=== PATIENT | male | born 1980 | race Caucasian/White ===

== ENCOUNTER 2016-07-08 10:15 | Inpatient (IN) | payer MEDICARE, MEDICAID ==
[2016-07-08 11:20] LABS: Hematocrit 45 % (42-52); Hemoglobin 15.5 g/dl (14.0-18.0); Mean Corpuscular HGB Conc 34 g/dl (31-36); Mean Corpuscular Hemoglobin 31 pg (27-31); Mean Corpuscular Volume 90 fL (80-94); Mean Platelet Volume 10 um3 (7.4-10.4); Red Blood Count 5.07 10^6/ul (4.0-5.4); Red Cell Distribution Width 14 % (10.5-15); White Blood Count 8.2 10^3/ul (3.5-10.8)
[2016-07-08 11:36] LABS: ALT 9 U/L (7-52); AST 11 U/L (13-39); Albumin 4.5 g/dL (3.2-5.2); Alkaline Phosphatase 36 U/L (34-104); Anion Gap 7 mmol/L (2-11); Blood Urea Nitrogen 13 mg/dL (6-24); CO2 Carbon Dioxide 27 mmol/L (22-32); Calcium 9.3 mg/dL (8.6-10.3); Chloride 103 mmol/L (101-111); EGFR African American 118.2 (>60); EGFR Non-African American 91.9 (>60); Globulin 2.4 g/dL (2-4); Glucose 88 mg/dL (70-100); Potassium 4.1 mmol/L (3.5-5.0); Sodium 137 mmol/L (133-145); Total Protein 6.9 g/dL (6.4-8.9)
[2016-07-08 11:44] LABS: Urine Bilirubin Negative (Negative); Urine Glucose Negative (Negative); Urine Nitrite Negative (Negative)
[2016-07-08 12:08] LABS: Benzodiazepine Urine Screen None Detected (None Detect)
[2016-07-08 12:11] LABS: Acetaminophen < 15 mcg/mL; Alcohol < 10 mg/dL (<10); Salicylate < 2.50 mg/dL (<30)
[2016-07-08 12:21] LABS: TSH (Thyroid Stimulating Horm) 0.82 mcIU/mL (0.34-5.60)
[2016-07-08] MEDS ORDERED: Nicotine GUM* 2 MG PO PRN (13:03)
[2016-07-08] MEDS ORDERED: Mouth Piece, Nicotine* 1 EACH CARTRIDGE INH ONE (14:00)
--- NOTE | 2016-07-08 16:31 | ED ---
Jeramy Posey Erika, scribed for Hung Villa MD on 07/08/16 at 1109 . Psychiatric Complaint - HPI Summary HPI Summary: Patient is a 35-year-old male presenting to the ED with a CC of SI. Patient reports a Hx of depression and bipolar disorder, and states he takes 2000 mg depakote daily. He reports he used to take the medication at night, and recently began taking it in the morning. Pt states medication was working well until a few weeks ago, when pt's girlfriend . He states he has cut himself on his arms since then, and is afraid he is going to hurt himself. Pt also reports, "I sometimes feel like I'm being followed." Pt states he has not been eating "appropriately," although he has been eating "a lot," and states he has been sleeping well. Pt reports that he works on and off. Pt denies Hx HTN, diabetes, hyperlipidemia. PSHx calcium deposit removal. FHx cancer, HTN, diabetes, Alzheimer's, stroke. Pt smokes 1PPD, and uses cocaine. He states he was drinking daily in May 2016, but stopped recently and now rarely drinks. - History Of Current Complaint Chief Complaint: EDMentalHealth Time Seen by Provider: 07/08/16 10:21 Accompanied By: Brother? Hx Obtained From: Patient Onset/Duration: Gradual Onset, Lasting Weeks, Still Present Timing: Constant Severity Initially: Moderate Severity Currently: Moderate Character: Depressed Aggravating Factor(s): Recent Stress - Girlfriend's Alleviating Factor(s): Nothing Associated Signs And Symptoms: Positive: Paranoid Behavior, Appetite Change Related History: Positive For: Prior Psychiatric Issues Has Suicidal: Reports: Thoughts, With A Plan, Has Prior Attempt(s) - Allergies/Home Medications Allergies/Adverse Reactions: Allergies Allergy/AdvReac Type Severity Reaction Status Date / Time Vancomycin Allergy RED MAN Verified 07/08/16 15:53 SYNDROME Bupropion [From Wellbutrin] AdvReac Intermediate Blurred Verified 07/08/16 15:53 Vision PMH/Surg Hx/FS Hx/Imm Hx Endocrine/Hematology History: Denies: Hx Diabetes, Hx Thyroid Disease Respiratory History: Denies: Hx Asthma, Hx Chronic Obstructive Pulmonary Disease (COPD) GI History: Denies: Hx Ulcer Musculoskeletal History: Reports: Other Musculoskeletal History - OCC SCIATICA Sensory History: Denies: Hx Contacts or Glasses, Hx Hearing Aid Opthamlomology History: Denies: Hx Contacts or Glasses Psychiatric History: Reports: Hx Anxiety, Hx Post Traumatic Stress Disorder, Hx Inpatient Treatment, Hx Community Mental Health Tx, Hx Bipolar Disorder, Hx Substance Abuse Denies: Hx Eating Disorder, Hx of Violent Episodes Against Others - Surgical History Surgery Procedure, Year, and Place: History of bone growth removal- Pt unsure of year Hx Anesthesia Reactions: No - Immunization History Date of Tetanus Vaccine: unknown Infectious Disease History: No Infectious Disease History: Reports: Hx of Known/Suspected MRSA - SKIN Denies: Hx Hepatitis, Hx Human Immunodeficiency Virus (HIV), Traveled Outside the [place] in Last 30 Days - Family History Known Family History: Positive: Hypertension, Diabetes, Other - cancer, Alzheimer's, stroke - Social History Alcohol Use: Rare Substance Use Type: Reports: Cocaine, Heroin, Marijuana Substance Use Comment - Amount & Last Used: 1-2 TIMES/WEEK Hx Tobacco Use: Yes Smoking Status (MU): Current Every Day Smoker Type: Cigarettes Amount Used/How Often: 1 PPD Have You Smoked in the Last Year: Yes Review of Systems Skin: Other - lacerations to arms Psychological: Other - states some paranoia, appetite change Positive: Depressed - with SI All Other Systems Reviewed And Are Negative: Yes Physical Exam - Summary Physical Exam Summary: VITAL SIGNS: Reviewed. GENERAL: Patient is a well developed and nourished male who is lying comfortable in the stretcher. Patient is not in any acute respiratory distress. HEAD AND FACE: No signs of trauma. No ecchymosis, hematomas or skull depressions. No sinus tenderness. EYES: PERRLA, EOMI x 2, No injected conjunctiva, no nystagmus. EARS: Hearing grossly intact. Ear canals and tympanic membranes are within normal limits. MOUTH: Oropharynx within normal limits. NECK: Supple, trachea is midline, no adenopathy, no JVD, no carotid bruit, no c- spine tenderness, neck with full ROM. CHEST: Symmetric, no tenderness at palpation LUNGS: Clear to auscultation bilaterally. No wheezing or crackles. CVS: Regular rate and rhythm, S1 and S2 present, no murmurs or gallops appreciated. ABDOMEN: Soft, non-tender. No signs of distention. No rebound no guarding, and no masses palpated. Bowel sounds are normal. EXTREMITIES: FROM in all major joints, no edema, no cyanosis or clubbing. NEURO: Alert and oriented x 3. No acute neurological deficits. Speech is normal and follows commands. SKIN: Dry and warm, UE with multiple superficial lacerations. PSYCH: Depressed, quiet, positive suicidal thoughts and plan. No homicidal thoughts or plan. No signs of psychosis or pressure speech. No tangential speech. Triage Information Reviewed: Yes Vital Signs On Initial Exam: Initial Vitals Temp Pulse Resp BP Pulse Ox 97.9 F 110 16 152/89 99 07/08/16 10:16 07/08/16 10:16 07/08/16 10:16 07/08/16 10:16 07/08/16 10:16 Vital Signs Reviewed: Yes Diagnostics - Vital Signs Vital Signs Temp Pulse Resp BP Pulse Ox 07/08/16 10:16 97.9 F 110 16 152/89 99 - Laboratory Result Diagrams: 07/08/16 11:03 07/08/16 11:03 Lab Statement: Any lab studies that have been ordered have been reviewed, and results considered in the medical decision making process. Course/Dx - Course Course Of Treatment: Patient is a 35-year-old male presenting to the ED with a CC of SI. Patient reports a Hx of depression and bipolar disorder, and states he takes 2000 mg depakote daily. He reports he used to take the medication at night, and recently began taking it in the morning. Pt states medication was working well until a few weeks ago, when pt's girlfriend . He states he has cut himself on his arms since then, and is afraid he is going to hurt himself. Pt also reports, "I sometimes feel like I'm being followed." Pt states he has not been eating "appropriately," although he has been eating "a lot," and states he has been sleeping well. Pt reports that he works on and off. Pt denies Hx HTN, diabetes, hyperlipidemia. PSHx calcium deposit removal. FHx cancer, HTN, diabetes, Alzheimer's, stroke. Pt smokes 1PPD, and uses cocaine. He states he was drinking daily in May 2016, but stopped recently and now rarely drinks. All blood work WNL. U tox positive for cocaine and marihuana. He is medically cleared. He is awaiting for a MHE. Patient is hemodynamically stable and A+O x 3. The patient was assessed by Dr. Elias, and he admitted the patient to his services for further work up and management. Assessment/Plan: Patient is medically cleared for MHU Evaluation at 11:45 - Differential Dx/Clinical Impression Differential Diagnosis/HQI/PQRI: Positive: Depression, Homicidal Ideation, Suicidal Ideation, Suicidal Gesture Provider Diagnosis: Suicidal ideation, Depression Discharge - Discharge Plan Condition: Stable Disposition: ADMITTED TO [facility] The documentation as recorded by the Jeramy urban Erika accurately reflects the service I personally performed and the decisions made by , Hung Villa MD.
[2016-07-08] MEDS: Divalproex DR TAB(*) 500 MG PO SCH (21:09)
[2016-07-08] MEDS ORDERED: Mouth Piece, Nicotine* 1 EACH CARTRIDGE ONE (21:12)
[2016-07-08] MEDS: Nicotine Inhaler* 10 MG AMP INH PRN (21:14)
--- NOTE | 2016-07-09 16:48 | HP ---
PSYCHIATRIC HISTORY AND PHYSICAL: DATE OF ADMISSION: 07/08/16 JUSTIFICATION FOR ADMISSION: The patient is in need of 24-hour supervision and care secondary to antunez icidal ideations voiced within 72 hours of admission. CHIEF COMPLAINT: "Can I get out of here yet." HISTORY OF PRESENT ILLNESS: The patient is a 35-year-old single white male with a history of polysu bstance abuse and putative bipolar disorder who arrives at the hospital being brought in by his brot her Antwon due to suicidal ideations and evidence that he had been superficially cutting himself. A ccording to the patient, his girlfriend committed suicide approximately 3 weeks ago. He feels guilt y because they were huffing inhalant substances together and she passed out. He apparently did not call 911 thinking that she would be okay, but she as a result of that exposure to inhaled subst ances. Since then, he states that he returned to an ex-girlfriend for support; however, she has bee n prostituting herself and he feels enraged by this and upset. He recently started superficially cu tting himself on the arm; however, this was evaluated in the emergency room and did not require sutu res. When I meet with him, he is a disheveled middle-aged white male who looks nuvia and consider ably older than his stated age. He is telling me that he had an extended period of sobriety between January 2016 and May 2016, at which time he was taking a new medication called Vraylar as pre scribed by Dr. Brian Arciniega at [facility]. He states this controlled his cravi ng for drugs until that time that he started using again with his girlfriend. His use of cocaine an d cannabis in particular has intensified since her . At this point, the patient is declining t he offer of inpatient rehab, stating that he has been to 3 rehabs in the past and stating "what can they teach me that I don't already know." In his estimation, what is vital is that he get back on V raylar as well as the Depakote that he takes for his alleged bipolar disorder. The patient is now d enying suicidality and he denies homicidality. When he arrived, he had complained of some psychotic symptoms such as paranoia associated with seeing a white car following him, believing that he had b een monitored by a drone and finding special meaning to information over radio. At this time he is denying these symptoms, however. PAST PSYCHIATRIC HISTORY: He has had multiple past hospitalizations at this facility including 3 in the year of 2010. He had an admission also in September 2012 and his last admission here was July 2013 under the service of Dr. Robbin Elias. He indicates that as a child, he was diagnosed with OCD and attention deficit disorder. We have had past MMPI evaluations that indicate that he has significant [place] II personality traits. For example, he has a pattern of high levels of cynicism, sense of ent itlement and victimization. In the past he has also had micropsychotic symptoms, which were related to both substance abuse and [place] II personality pathology. Currently he sees a therapist at [facility] named Ronan Gillette. He also sees psychiatrist, Dr. Brian Arciniega. His last meeting Dr. Arciniega was in May. Currently he has no access to firearms. In the past he has us ed Zoloft, Abilify, Wellbutrin, Seroquel, Depakote, and Vraylar. PAST MEDICAL HISTORY: Considerable for hypertension. CURRENT MEDICATIONS: He states that he is on Depakote 2000 mg daily. 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 FAMILY PSYCHIATRIC HISTORY: Noncontributory. SUBSTANCE ABUSE HISTORY: The patient does have a previous history of alcohol dependence but he stat es that he has been sober for between 8 and 9 years. His drug of choice is crack cocaine and he als o is a daily cannabis smoker. The patient will use heroin occasionally through either snorting it o r through IV injection, but states that he has not used this in the last 6 months. He has been to r ehab 3 times, 2 extended rehabs at the [facility] and 1 rehab at [facility] in [place], [place]. SOCIAL HISTORY: The patient is originally from the [facility]. His parents are alive but di vorced. His father lives locally whereas his mother lives down at [place] and he spent a great deal of his life travelling back and forth between [place] and [place]. He does have 5 siblings and re ports not being close with any of them. He has 2 children, ages 14 and 19, who live with their moth er. Occasionally he sees his 14-year-old daughter but not his other child. He was for 2 ye ars and then . Most recently he dated a woman who of a drug overdose in June and ayala kenny went back to an old girlfriend who apparently has been prostituting herself and using crack also . He is educated through a GED and has worked in the past as a customer care professional. Currently he receives dis ability payments for what he states is bipolar disorder and chronic back pain. He identifies as het erosexual. He is also self-identifying as Mormon. REVIEW OF SYSTEMS: The patient denies headache or double vision. He denies cough, chest pain, sore throat, difficulty breathing. He denies abdominal pain, nausea, vomiting, diarrhea or constipation . He denies difficulty ambulating, rashes, enlarged lymph nodes or fevers or changes in weight. He does complain of several symptoms of cocaine withdrawal including irritability, hypersomnolence, hy perphasia, and reddening of his eyes. PHYSICAL EXAMINATION VITALS: Blood pressure 134/79, heart rate 79, respiratory rate 16, temperature 98.7 degrees Fahrenh eit, oxygen saturations are 100% on room air. HEENT: Head is normocephalic, atraumatic. He is edentulous. Mucous membranes are pink and moist. NECK: Supple. CHEST: Clear to auscultation bilaterally. CARDIAC: Reveals normal heart sounds. ABDOMEN: Soft and nontender. MUSCULOSKELETAL: Reveals a full range of motion with no sign of edema. NEUROLOGICAL: He is grossly intact with no focal deficits. SKIN: Warm and dry. MENTAL STATUS EXAM: The patient is a middle-aged white male appearing nuvia and considerably old er than his stated age. He is edentulous with red injected sclera, lying down supine in his bed. H e has long straggly hair with minimal grooming. He does display some evidence of irritability, alth ough he answers questions. Speech has a normal rate, tone and volume. Mood appears to be irritable with a somewhat labile affect. Thought process is linear, goal directed. Thought content is signi ficant for his desire to leave the hospital. He is denying suicidal or homicidal ideations currentl y. He is denying auditory or visual hallucinations and he denies any further delusional thoughts of persecution. He denies auditory or visual hallucinations. Insight and judgment appear to be somew hat limited given his refusal to be referred to substance abuse treatment. Cognitively he is awake but lethargic with what appears to be an average intellect. LABORATORY DATA: CBC is within normal limits as is his CMP. Urinalysis is likewise within normal l imits. Urine drug screen is positive for both cocaine and cannabinoids, metabolites. His serum alc ohol level was negligible. DIAGNOSES: Are as follows: [place] I: 1. Cocaine-induced mood disorder. 2. Cocaine use disorder. 3. Cannabis use disorder 4. Bipolar disorder by history. [place] II: Cluster B personality traits by history. [place] III: Hyper tension, chronic back pain. [place] IV: Severe primary support stressors. [place] V: At this time is 40. IMPRESSION: The patient is a 35-year-old single white male with a history of polysubstance abuse an d alleged bipolar disorder who arrived seeking hospitalization due to suicidal ideation in the graham xt of rampant cocaine abuse. He states that his stressor is the recent of his girlfriend as we ll as the prostituting lifestyle of his current girlfriend. He is willing to continue to take Depak ote and he is requesting reinitiation of Vraylar. Unfortunately, Vraylar is not included in our [facility] p[facility] formulary and we have no access to this medication unless someone can bring it in. The jacquelyn cai is huber for safety at this time. PLAN: 1. The patient is admitted to the Adult [facility]al [facility] Unit where he is placed on q.30 minute ch ecks for his own safety. 2. We will continue Depakote therapy at the dose of 200 mg at bedtime. If he choses to stay here w ithout signing out of the hospital, we can enquire at [facility] about getting hi m some samples of Vraylar to take. We are going to strongly encourage him to reconsider in order to get him into a substance abuse program as this appears to be his primary pathology at this time; ho wever, this will require voluntary participation and it does not appear that his insight into this i ssue is very good at this point. We can certainly contact his brother Louis for further collateral in formation and speak to representatives at [facility]. At the very least, he need s to have followup appointments at [facility] at his time of discharge. While he is here, he is certainl y encouraged to avail himself of all milieu activities including individual and group psychotherapie s. [id number]/[facility] #: [id number]
[2016-07-09] MEDS ORDERED: LORazepam TAB(*) 1 MG ONE (17:37)
[2016-07-09] MEDS ORDERED: Haloperidol TAB* 5 MG ONE ×2 (17:38→17:44)
[2016-07-09] MEDS: Divalproex DR TAB(*) 500 MG PO SCH ×2 (18:42→19:04)
[2016-07-10] MEDS: Nicotine Inhaler* 10 MG AMP INH PRN (07:36)
[2016-07-10 08:03] VITALS: BP 144/60
--- NOTE | 2016-07-11 03:11 | DS ---
DISCHARGE SUMMARY: DATE OF ADMISSION: 07/08/16 DATE OF DISCHARGE: 07/10/16 DISCHARGE DIAGNOSES: Are as follows: [place] I: Cocaine-induced mood disorder. Cocaine use disorder. Cannabis use disorder. Bipolar disorder by history. [place] II: Cluster B personality traits by history. [place] III: Hypertension, chronic back pain. [place] IV: Severe primary support stressors. [place] V: At the time of admission was 39 and at the time of discharge is 59. CONDITION AT THE TIME OF DISCHARGE: Improved. The patient denies suicidal or homicidal ideations. He is no longer endorsing paranoid symptoms. He is tolerating his medication well and is agreeable to following up tomorrow at the [facility]. Furthermore, he is future oriented indicating that he will return to live with his father in [place] and that he is breaking up with the current girlfriend who he has been using drugs with and who has been prostituting herself. It should be noted that the acute cause of his depressive illness and suicidal thoughts was abuse of crack cocaine. That acute stressor is now mitigated by virtue of the fact that the patient is now detoxified from cocaine and is seeking to abstain from substances in the future. MENTAL STATUS EXAM: At the time of discharge, the patient is a middle aged white male appearing older than his stated age. He is edentulous with somewhat unkempt long brown hair. He has [id number] grooming. Currently, he is cooperative, calm, answering questions and it is easy to establish a rapport with him. Speech has a normal rate, tone and volume. Mood appears to be euthymic with a full affect. Thought process is linear and goal directed. Thought content is significant for his desire to leave the hospital. He is denying suicidal or homicidal ideations currently. He is denying auditory or visual hallucination and he denies any further delusional thoughts or persecution. Insight and judgment appear to be limited given his refusal to be referred to substance abuse treatment in the community. Cognitively, he is awake and alert with what appears to be an average intellect. DISCHARGE INSTRUCTIONS: For the patient are as follows: A. Medications: He is on Depakote 2000 mg p.o. daily. B. Diet is regular. C. Activities as tolerated. The patient is strongly encouraged to abstain from tobacco products; however, he is declining the offer of continued nicotine replacement therapy indicating his preference to continue to smoke cigarettes for the time being. D. Followup care. The patient will be seen tomorrow which is , , at [facility] with his psychiatrist, Dr. Brian Arciniega. He has been offered followups at the [facility], but he is refusing these and is similarly refusing referral to inpatient substance abuse treatment. HOSPITAL COURSE: Part A: Reason for admission: The patient is a 35-year-old single white male with a history of polysubstance abuse and putative bipolar disorder, who arrived at the hospital being brought in by his brother, Antwon, due to suicidal ideations and evidence that he has been superficially cutting himself. According to the patient, his girlfriend committed suicide approximately 3 weeks ago. He feels guilty because they were huffing inhalant substances together in an effort to get high and she passed out. He apparently did not call 911 thinking that she would be okay, but she as a result of the exposure to inhaled psychoactive substances. Since then, he states that he returned to an ex- girlfriend for support; however, she has been prostituting herself in order to get money for drugs and he feels enraged and upset by this. Recently, he started superficially cutting himself on the arm; however, when this was evaluated in our emergency room, it did not require sutures. When I met with him, he was a disheveled middle aged male who looked nuvia and considerably older than his stated age. He was telling me that he had an extended period of sobriety between January 2016 and May of 2016 at which time, he was taking a new medication called Vraylar as prescribed by Dr. Brian Arciniega at [facility]. He states that this medication controlled his craving for drugs until that time that he started using again with his girlfriend. His use of cocaine and cannabis in particular has intensified since her . At this point, the patient is declining the offer of inpatient rehab stating that he has been to three long- term rehabilitation centers in the past and stating "what can they teach me that I do not already know." In his estimation what is vital is that he get back on Vraylar as well as the Depakote that he takes for his alleged bipolar disorder. The patient is now denying suicidality and he denies homicidality. According to the ER notes, when he arrived, he had complained of some psychotic symptoms such as paranoia associated with seeing a white car following him and believing that he had been monitored by a drone in finding special meaning to information that he had heard over the radio. In looking at his chart from old hospitalizations in the record, I see that he does have a history of so called micro psychotic events which were understood to be secondary to his abused substances and his underlying personality pathology. Part-B: Psychiatric treatment rendered: The patient was admitted to the adult behavioral health unit, where he was placed on q.30-minute checks for his own safety. He was assessed for the need for the WAM protocol, but he did not show any hemodynamic instability or signs of physiological withdrawal. For this reason, he was treated conservatively with Depakote 2000 mg p.o. q. nightly. He had requested to be resumed on Vraylar; however, he did not have any one who could go and cigar packer and picker his outpatient supply. I contacted our pharmacy who made it clear that this medication is new and not yet on the formulary and they did not even have off formulary supplies to use in this instance. It appears that he had not been using this medication since May of 2016. The patient's suicidality had already resolved by the time he arrived on our unit. On the second day of his hospitalization, he submitted a request for discharge against medical advice stating that he was no longer suicidal and that he wanted to go live with his father. Efforts were made in order to get him to sign a release of information for his father; however, the patient refused indicating that he was an adult and did not need parental support in that way. He did sign consents for us to contact [facility] and we confirmed that he has close followup in the community and has remained in the care of Dr. Brian Arciniega. At this time, it is advisable that he speak to Dr. Arciniega about being put back on Vraylar. We made several attempts to get him to reconsider substance abuse treatment; however, he declined this every time. On the date of discharge, he continues to endorse feeling well and back to his baseline. He is telling me that he wants to avoid using drugs by getting back on Vraylar and he has ended the relationship with his most recent substance abusing girlfriend. I should say that the patient's prognosis is somewhat limited given the fact that he is not accepting definitive treatment for his substance abuse issues, which are his primary problem at this time in my clinical opinion. In any rate, we would like to wish the patient the best for healthy and safe future. [id number]/[facility] #: [id number] LIZ
== END 2016-07-10 13:30 | disposition home or self-care (01) | DRG 897 ==
LOC: ED 10:15 → BSU 16:09
PROVIDERS: ADMIT Psychiatry & Neurology Psychiatry; ATTEND Psychiatry & Neurology Psychiatry
DX: F14.14 Cocaine abuse with cocaine-induced mood disorder (principal); F31.9 Bipolar disorder, unspecified; I10 Essential (primary) hypertension; F12.10 Cannabis abuse, uncomplicated; M54.9 Dorsalgia, unspecified; F10.21 Alcohol dependence, in remission; Z79.899 Other long term (current) drug therapy; Z88.1 Allergy status to other antibiotic agents
CPT/HCPCS: 36415; 80053; 80307; 80320; 80329; 81003; 84443; 85025; 86703; 99222; 99238; A9270-GY; G0480

== ENCOUNTER → 2016-12-12 13:19 | Emergency (ER) | payer MEDICARE, MEDICAID ==
[~2016-12-12 13:19] MED LIST: Mouth Piece, Nicotine* 1 EACH CARTRIDGE ONE; Nicotine Inhaler* 10 MG AMP INH ONE
[2016-12-12 14:12] LABS: Hematocrit 46 % (42-52); Hemoglobin 15.3 g/dl (14.0-18.0); Mean Corpuscular HGB Conc 33 g/dl (31-36); Mean Corpuscular Hemoglobin 30 pg (27-31); Mean Corpuscular Volume 90 fL (80-94); Mean Platelet Volume 9 um3 (7.4-10.4); Red Blood Count 5.13 10^6/ul (4.0-5.4); Red Cell Distribution Width 13 % (10.5-15); White Blood Count 4.9 10^3/ul (3.5-10.8)
[2016-12-12 14:23] LABS: ALT 37 U/L (7-52); AST 22 U/L (13-39); Albumin 3.9 g/dL (3.2-5.2); Alkaline Phosphatase 50 U/L (34-104); Anion Gap 5 mmol/L (2-11); BUN/Creatinine Ratio 14.5 (8-20); Blood Urea Nitrogen 12 mg/dL (6-24); CO2 Carbon Dioxide 27 mmol/L (22-32); Chloride 106 mmol/L (101-111); EGFR African American 134.1 (>60); EGFR Non-African American 104.3 (>60); Globulin 2.3 g/dL (2-4); Glucose 80 mg/dL (70-100); Potassium 3.6 mmol/L (3.5-5.0); Sodium 138 mmol/L (133-145); Total Protein 6.2 g/dL (6.4-8.9)
[2016-12-12 14:34] LABS: Urine Bilirubin Negative (Negative); Urine Glucose Negative (Negative); Urine Nitrite Negative (Negative)
[2016-12-12 14:40] LABS: Acetaminophen < 15 mcg/mL; Alcohol < 10 mg/dL (<10); Salicylate < 2.50 mg/dL (<30)
[2016-12-12 14:50] LABS: TSH (Thyroid Stimulating Horm) 0.74 mcIU/mL (0.34-5.60)
[2016-12-12 15:01] LABS: Benzodiazepine Urine Screen None Detected (None Detect)
[2016-12-12 15:08] VITALS: BP 131/83
--- NOTE | 2016-12-12 18:44 | ED ---
Bala Posey Thomas, scribed for Hung Villa MD on 12/12/16 at 1402 . Psychiatric Complaint - HPI Summary HPI Summary: The pt is a 36 y/o M presenting to the ED for a psychiatric evaluation. He reports visual hallucinations, increased paranoia, and HI. Prior to two months ago, he was taking Depakote, but he stopped taking this medication two months ago. He denies any SI or any pains. He does not have a Hx of SI or HI. PMHx: anxiety, depression, PTSD, inpatient treatment, bipolar, substance abuse. PSHx: cyst removal form scalp. SHx: rare alcohol use, marijuana use, heroin use, smoker. FHx: DM, HTN, CA, Alzheimers, CVA. - History Of Current Complaint Chief Complaint: EDMentalHealth Time Seen by Provider: 12/12/16 13:32 Hx Obtained From: Patient Onset/Duration: Lasting Weeks - stopped his medication 2 months ago, Still Present Timing: Constant Aggravating Factor(s): Nothing Alleviating Factor(s): Nothing Associated Signs And Symptoms: Positive: Hallucinating - visual, Paranoid Behavior Related History: Positive For: Prior Psychiatric Issues, Drug Abuse Counseling Has Suicidal: Denies: Thoughts Has Homicidal: Reports: Thoughts - Allergies/Home Medications Allergies/Adverse Reactions: Allergies Allergy/AdvReac Type Severity Reaction Status Date / Time Vancomycin Allergy RED MAN Verified 07/08/16 15:53 SYNDROME Bupropion [From Wellbutrin] AdvReac Intermediate Blurred Verified 07/08/16 15:53 Vision Home Medications: Home Medications Divalproex DR TAB(*) [Depakote DR(*)] 2,000 mg PO BEDTIME 12/12/16 [History Confirmed 12/12/16] PMH/Surg Hx/FS Hx/Imm Hx Previously Healthy: No Endocrine/Hematology History: Denies: Hx Diabetes, Hx Thyroid Disease Cardiovascular History: Reports: Hx Hypertension Respiratory History: Denies: Hx Asthma, Hx Chronic Obstructive Pulmonary Disease (COPD) GI History: Denies: Hx Ulcer Musculoskeletal History: Reports: Other Musculoskeletal History - Sciatica Sensory History: Denies: Hx Contacts or Glasses, Hx Hearing Aid Opthamlomology History: Denies: Hx Contacts or Glasses Neurological History: Reports: Other Neuro Impairments/Disorders - Sciatica Psychiatric History: Reports: Hx Anxiety, Hx Depression, Hx Post Traumatic Stress Disorder, Hx Inpatient Treatment, Hx Community Mental Health Tx, Hx Bipolar Disorder, Hx Substance Abuse Denies: Hx Eating Disorder, Hx Suicide Attempt, Hx of Violent Episodes Against Others - Surgical History Surgery Procedure, Year, and Place: Cysts removed from scalp Hx Anesthesia Reactions: No - Immunization History Date of Tetanus Vaccine: unknown Infectious Disease History: Reports: Hx of Known/Suspected MRSA - SKIN Denies: Hx Hepatitis, Hx Human Immunodeficiency Virus (HIV), Traveled Outside the [place] in Last 30 Days - Family History Known Family History: Positive: Hypertension, Diabetes, Other - cancer, Alzheimer's, stroke - Social History Alcohol Use: Rare Substance Use Type: Reports: Heroin, Marijuana, Other Substance Use Comment - Amount & Last Used: Crack Hx Tobacco Use: Yes Smoking Status (MU): Current Every Day Smoker Type: Cigarettes Amount Used/How Often: 1 PPD Have You Smoked in the Last Year: Yes Review of Systems Negative: Fever Positive: Other - POS: paranoia, HI, visual hallucinations; NEG: SI All Other Systems Reviewed And Are Negative: Yes Physical Exam - Summary Physical Exam Summary: VITAL SIGNS: Reviewed. GENERAL: ~Patient is a well-developed and nourished male who is lying comfortable in the stretcher. ~Patient is not in any acute respiratory distress. HEAD AND FACE: No signs of trauma. ~No ecchymosis, hematomas or skull depressions. No sinus tenderness. EYES: PERRLA, EOMI x 2, No injected conjunctiva, no nystagmus. EARS: Hearing grossly intact. Ear canals and tympanic membranes are within normal limits. MOUTH: Oropharynx within normal limits. NECK: Supple, trachea is midline, no adenopathy, no JVD, no carotid bruit, no c- spine tenderness, neck with full ROM. CHEST: Symmetric, no tenderness at palpation LUNGS: Clear to auscultation bilaterally. No wheezing or crackles. CVS: Regular rate and rhythm, S1 and S2 present, no murmurs or gallops appreciated. ABDOMEN: Soft, non-tender. No signs of distention. No rebound no guarding, and no masses palpated. Bowel sounds are normal. EXTREMITIES: FROM in all major joints, no edema, no cyanosis or clubbing. NEURO: Alert and oriented x 3. No acute neurological deficits. Speech is normal and follows commands. SKIN: Dry and warm PSYCH: Depressed, quiet, and denies any suicidal thoughts or plan. No homicidal plans. No signs of psychosis or pressure speech. No tangential speech. Triage Information Reviewed: Yes Vital Signs On Initial Exam: Initial Vitals Temp Pulse Resp BP Pulse Ox 97.8 F 90 18 131/77 98 12/12/16 13:24 12/12/16 13:24 12/12/16 13:24 12/12/16 13:24 12/12/16 13:24 Vital Signs Reviewed: Yes Diagnostics - Vital Signs Vital Signs Temp Pulse Resp BP Pulse Ox 12/12/16 13:24 97.8 F 90 18 131/77 98 - Laboratory Lab Results: Lab Results 12/12/16 12/12/16 12/12/16 Range/Units 13:45 13:45 13:51 WBC 4.9 (3.5-10.8) 10^3/ul RBC 5.13 (4.0-5.4) 10^6/ul Hgb 15.3 (14.0-18.0) g/dl Hct 46 (42-52) % MCV 90 (80-94) fL MCH 30 (27-31) pg MCHC 33 (31-36) g/dl RDW 13 (10.5-15) % Plt Count 214 (150-450) 10^3/ul MPV 9 (7.4-10.4) um3 Neut % (Auto) 56.6 (38-83) % Lymph % (Auto) 30.6 (25-47) % [place] % (Auto) 9.4 H (1-9) % Eos % (Auto) 2.0 (0-6) % Baso % (Auto) 1.4 (0-2) % Absolute Neuts (auto) 2.8 (1.5-7.7) 10^3/ul Absolute Lymphs (auto) 1.5 (1.0-4.8) 10^3/ul Absolute Monos (auto) 0.5 (0-0.8) 10^3/ul Absolute Eos (auto) 0.1 (0-0.6) 10^3/ul Absolute Basos (auto) 0.1 (0-0.2) 10^3/ul Absolute Nucleated RBC 0.01 10^3/ul Nucleated RBC % 0.1 Sodium (133-145) mmol/L Potassium (3.5-5.0) mmol/L Chloride (101-111) mmol/L Carbon Dioxide (22-32) mmol/L Anion Gap (2-11) mmol/L BUN (6-24) mg/dL Creatinine (0.67-1.17) mg/dL Est GFR ( Amer) (>60) Est GFR (Non-Af Amer) (>60) BUN/Creatinine Ratio (8-20) Glucose (70-100) mg/dL Calcium (8.6-10.3) mg/dL Total Bilirubin (0.2-1.0) mg/dL AST (13-39) U/L ALT (7-52) U/L Alkaline Phosphatase (34-104) U/L Total Protein (6.4-8.9) g/dL Albumin (3.2-5.2) g/dL Globulin (2-4) g/dL Albumin/Globulin Ratio (1-3) TSH (0.34-5.60) mcIU/mL Urine Color Yellow Urine Appearance Clear Urine pH 5.0 (5-9) Ur Specific [place] 1.012 (1.010-1.030) Urine Protein Negative (Negative) Urine Ketones Negative (Negative) Urine Blood Negative (Negative) Urine Nitrate Negative (Negative) Urine Bilirubin Negative (Negative) Urine Urobilinogen Negative (Negative) Ur Leukocyte Esterase Negative (Negative) Urine Glucose Negative (Negative) Salicylates (<30) mg/dL Urine Opiates Screen None detected (None Detect) Acetaminophen mcg/mL Ur Barbiturates Screen None detected (None Detect) Ur Phencyclidine Scrn None detected (None Detect) Ur Amphetamines Screen None detected (None Detect) U Benzodiazepines Scrn None detected (None Detect) Urine Cocaine Screen Presumptive positive H (None Detect) U Cannabinoids Screen Presumptive positive H (None Detect) Serum Alcohol (<10) mg/dL 12/12/16 Range/Units 13:51 WBC (3.5-10.8) 10^3/ul RBC (4.0-5.4) 10^6/ul Hgb (14.0-18.0) g/dl Hct (42-52) % MCV (80-94) fL MCH (27-31) pg MCHC (31-36) g/dl RDW (10.5-15) % Plt Count (150-450) 10^3/ul MPV (7.4-10.4) um3 Neut % (Auto) (38-83) % Lymph % (Auto) (25-47) % [place] % (Auto) (1-9) % Eos % (Auto) (0-6) % Baso % (Auto) (0-2) % Absolute Neuts (auto) (1.5-7.7) 10^3/ul Absolute Lymphs (auto) (1.0-4.8) 10^3/ul Absolute Monos (auto) (0-0.8) 10^3/ul Absolute Eos (auto) (0-0.6) 10^3/ul Absolute Basos (auto) (0-0.2) 10^3/ul Absolute Nucleated RBC 10^3/ul Nucleated RBC % Sodium 138 (133-145) mmol/L Potassium 3.6 (3.5-5.0) mmol/L Chloride 106 (101-111) mmol/L Carbon Dioxide 27 (22-32) mmol/L Anion Gap 5 (2-11) mmol/L BUN 12 (6-24) mg/dL Creatinine 0.83 (0.67-1.17) mg/dL Est GFR ( Amer) 134.1 (>60) Est GFR (Non-Af Amer) 104.3 (>60) BUN/Creatinine Ratio 14.5 (8-20) Glucose 80 (70-100) mg/dL Calcium 9.0 (8.6-10.3) mg/dL Total Bilirubin 0.60 (0.2-1.0) mg/dL AST 22 (13-39) U/L ALT 37 (7-52) U/L Alkaline Phosphatase 50 (34-104) U/L Total Protein 6.2 L (6.4-8.9) g/dL Albumin 3.9 (3.2-5.2) g/dL Globulin 2.3 (2-4) g/dL Albumin/Globulin Ratio 1.7 (1-3) TSH 0.74 (0.34-5.60) mcIU/mL Urine Color Urine Appearance Urine pH (5-9) Ur Specific [place] (1.010-1.030) Urine Protein (Negative) Urine Ketones (Negative) Urine Blood (Negative) Urine Nitrate (Negative) Urine Bilirubin (Negative) Urine Urobilinogen (Negative) Ur Leukocyte Esterase (Negative) Urine Glucose (Negative) Salicylates < 2.50 (<30) mg/dL Urine Opiates Screen (None Detect) Acetaminophen < 15 mcg/mL Ur Barbiturates Screen (None Detect) Ur Phencyclidine Scrn (None Detect) Ur Amphetamines Screen (None Detect) U Benzodiazepines Scrn (None Detect) Urine Cocaine Screen (None Detect) U Cannabinoids Screen (None Detect) Serum Alcohol < 10 (<10) mg/dL Result Diagrams: 12/12/16 13:51 12/12/16 13:51 Lab Statement: Any lab studies that have been ordered have been reviewed, and results considered in the medical decision making process. Course/Dx - Course Course Of Treatment: Cleared for MHE at 14:43. Assessment/Plan: The pt is a 36 y/o M presenting to the ED for a psychiatric evaluation. He reports visual hallucinations, increased paranoia, and HI. Prior to two months ago, he was taking Depakote, but he stopped taking this medication two months ago. He denies any SI or any pains. He does not have a Hx of SI or HI. PMHx: anxiety, depression, PTSD, inpatient treatment, bipolar, substance abuse. PSHx: cyst removal form scalp. SHx: rare alcohol use, marijuana use, heroin use, smoker. FHx: DM, HTN, CA, Alzheimers, CVA. Blood tests are without significant abnormality. The urine toxicology is positive for cocaine and marijuana. The patient is medically cleared at this point (14:43). The patient is awaiting MHE. Dr. Sy consulted for the patient and he request to be discharged patient home with F/U at Mental Health clinic at [facility]. - Differential Dx/Clinical Impression Differential Diagnosis/HQI/PQRI: Positive: Anxiety, Depression, Homicidal Ideation, Suicidal Ideation Provider Diagnosis: Substance induced mood disorder Discharge - Discharge Plan Condition: Fair Disposition: OTHER Discharge Disposition Comment: Pt is signed out from Dr. Villa to Dr. Zurita at shift change, pending MHE Referrals: Randolph Thompson, CALL CENTER RECEPTIONIST [Primary Care Provider] - The documentation as recorded by the Bala [place] Thomas accurately reflects the service I personally performed and the decisions made by , Hung Villa MD.
== END ==
LOC: ED 13:19
DX: F19.94 Other psychoactive substance use, unspecified with psychoactive substance-induced mood disorder (principal)
CPT/HCPCS: 36415; 80053; 80307; 80320; 80329; 81003; 84443; 85025; 99284; A9270-GY; G0480

== ENCOUNTER 2017-06-19 01:14 | Emergency (ER) | payer MEDICARE, MEDICAID ==
[2017-06-19 04:53] LABS: ABS Basophils 0.1 10^3/ul (0-0.2); ABS Eosinophils 0.1 10^3/ul (0-0.6); ABS Lymphocytes 2.1 10^3/ul (1.0-4.8); ABS Monocytes 0.6 10^3/ul (0-0.8); ABS Neutrophils 4.1 10^3/ul (1.5-7.7); ABS Nucleated RBC 0 10^3/ul; Eosinophil % 1.8 % (0-6); Hematocrit 41 % (42-52); Hemoglobin 13.9 g/dl (14.0-18.0); Lymphocyte % 30.4 % (25-47); Mean Corpuscular HGB Conc 34 g/dl (31-36); Mean Corpuscular Hemoglobin 30 pg (27-31); Mean Corpuscular Volume 89 fL (80-94); Mean Platelet Volume 9 um3 (7.4-10.4); Nucleated Red Blood Cells % 0.1; Platelet Count 192 10^3/ul (150-450); Red Blood Count 4.64 10^6/ul (4.0-5.4); Red Cell Distribution Width 14 % (10.5-15)
[2017-06-19 05:02] LABS: EGFR Non-African American 107.2 (>60)
[2017-06-19 05:31] LABS: INR 0.93 (0.77-1.02)
[2017-06-19 06:34] VITALS: BP 133/74
--- NOTE | 2017-06-19 08:18 | RAD ---
INDICATION: Left arm pain and numbness for one month. COMPARISON: Comparison is made with a prior CT of the brain from December 25, 2011. TECHNIQUE: Contiguous axial sections of the brain were obtained from the skull base to the vertex without contrast. FINDINGS: The ventricles, cisterns and sulci are within normal limits. No significant focal abnormality or mass effect is seen. There is no evidence for hemorrhage. No significant focal osseous abnormality is seen. The visualized portion of the paranasal sinuses and mastoid air cells appear clear. IMPRESSION: NO EVIDENCE FOR ACUTE INTRACRANIAL ABNORMALITY.
--- NOTE | 2017-06-19 08:21 | RAD ---
INDICATION: LEFT arm numbness for one month. Comparison: No relevant prior exams available on the [facility] PACS for comparison. Technique: Noncontrast CT cervical spine. Multiplanar reformation. Report: Minimal bilateral apical pleural-parenchymal scarring and blebs. No visualized lymphadenopathy or inflammatory process within the [id number] within limits of noncontrast CT. Negative for cervical spine fracture or facet subluxation. Moderate C5-C6 disc space narrowing and vertebral endplate osteophytosis. Dorsal disc osteophyte complex results in mild impression on the ventral margin of the thecal sac. Uncinate process spurring results in mild bilateral C5-C6 foraminal stenosis. Moderate disc space narrowing and dorsal disc osteophyte complex at C6-C7 with mild resulting impression on the ventral margin of the thecal sac. Uncinate process spurring results in moderate bilateral foraminal stenosis at C6-C7. IMPRESSION: 1. No evidence for traumatic cervical spine injury. 2. C5-C6 and C6-C7 degenerative spondylosis and uncovertebral joint osteophytosis with associated mild central canal stenosis at both levels and mild C5-C6 and moderate C6-C7 bilateral foraminal stenosis..
--- NOTE | 2017-06-19 08:23 | ED ---
Masood Posey Nilda, scribed for Jamaal Us MD on 06/19/17 at 0557 . Neurological HPI - HPI Summary HPI Summary: This patient is a 36 year old M presenting to [facility] with a chief complaint of constant numbness and cramping in LUE (from fingertips to left shoulder, 4/10 in severity) for about a month. Symptoms aggravated and alleviated by nothing. Patient reports intermittent shooting pain in left forearm. Patient denies dropping objects, neck pain, CP, SOB, speech or vision changes, and bilat LE issues. PMHx includes sciatica. - History of Current Complaint Chief Complaint: EDExtremityUpper Stated Complaint: MHE, LEFT ARM NUMBESS Hx Obtained From: Patient Onset/Duration: Sudden Onset, Started weeks ago, Still Present Timing: Constant Current Severity: Moderate Neurological Deficit Location: LUE Pain Intensity: 4 Pain Scale Used: 0-10 Numeric Character: Numbness/Tingling Aggravating: Nothing Alleviating: Nothing Associated Signs and Symptoms: Positive: Numbness. Negative: Visual Changes, Impaired Speech, Chest Pain, Shortness of Breath - Allergy/Home Medications Allergies/Adverse Reactions: Allergies Allergy/AdvReac Type Severity Reaction Status Date / Time MS Vancomycin [Vancomycin] Allergy RED MAN Verified 07/08/16 15:53 SYNDROME MS Bupropion AdvReac Intermediate Blurred Verified 07/08/16 15:53 [From Wellbutrin] Vision PMH/Surg Hx/FS Hx/Imm Hx Endocrine/Hematology History: Denies: Hx Diabetes, Hx Thyroid Disease Cardiovascular History: Reports: Hx Hypertension Respiratory History: Denies: Hx Asthma, Hx Chronic Obstructive Pulmonary Disease (COPD) GI History: Denies: Hx Ulcer Musculoskeletal History: Reports: Other Musculoskeletal History - Sciatica Sensory History: Denies: Hx Contacts or Glasses, Hx Hearing Aid Opthamlomology History: Denies: Hx Contacts or Glasses Neurological History: Reports: Other Neuro Impairments/Disorders - Sciatica Psychiatric History: Reports: Hx Anxiety, Hx Depression, Hx Post Traumatic Stress Disorder, Hx Inpatient Treatment, Hx Community Mental Health Tx, Hx Bipolar Disorder, Hx Substance Abuse Denies: Hx Eating Disorder, Hx Suicide Attempt, Hx of Violent Episodes Against Others - Surgical History Surgery Procedure, Year, and Place: Cysts removed from scalp Hx Anesthesia Reactions: No - Immunization History Date of Tetanus Vaccine: unknown Infectious Disease History: Yes Infectious Disease History: Reports: Hx of Known/Suspected MRSA - SKIN Denies: Hx Hepatitis, Hx Human Immunodeficiency Virus (HIV), Traveled Outside the [place] in Last 30 Days - Family History Known Family History: Positive: Cardiac Disease, Hypertension, Diabetes, Other - cancer, Alzheimer's, stroke - Social History Alcohol Use: Rare Substance Use Type: Reports: Heroin, Marijuana, Other Substance Use Comment - Amount & Last Used: Crack Hx Tobacco Use: Yes Smoking Status (MU): Current Every Day Smoker Type: Cigarettes Amount Used/How Often: 1 PPD Have You Smoked in the Last Year: Yes Review of Systems Negative: Chest Pain Negative: Shortness Of Breath Positive: Other - LUE cramping and shooting pain in left forearm; negative dropping objects, neck pain, bilat LE issues Neurological: Other - negative visual or speech changes Positive: Numbness - LUE All Other Systems Reviewed And Are Negative: Yes Physical Exam - Summary Physical Exam Summary: General: well-appearing, no pain distress Skin: warm, color reflects adequate perfusion, dry Head: normal Eyes: EOMI, [place] ENT: normal Neck: supple, nontender Respiratory: CTA, breath sounds present Cardiovascular: RRR Abdomen: soft, nontender Bowel: present Musculoskeletal: normal, strength/ROM intact, no swelling or erythema in left arm Neurological: A&O x3, pt reports decreased sensation throughout entire left arm , Pulses normal, Capillary refill normal bilaterally, Strength 5/5 Psychological: affect/mood appropriate Triage Information Reviewed: Yes Vital Signs On Initial Exam: Initial Vitals Temp Pulse Resp BP Pulse Ox 98.6 F 101 18 141/77 95 06/19/17 01:19 06/19/17 01:19 06/19/17 01:19 06/19/17 01:19 06/19/17 01:19 Vital Signs Reviewed: Yes - Pako Coma Scale Best Eye Response: 4 - Spontaneous Best Motor Response: 6 - Obeys Commands Best Verbal Response: 5 - Oriented Coma Scale Total: 15 Diagnostics - Vital Signs Vital Signs Temp Pulse Resp BP Pulse Ox 06/19/17 01:19 98.6 F 101 18 141/77 95 - Laboratory Lab Results: Lab Results 06/19/17 06/19/17 06/19/17 Range/Units 04:30 04:30 04:30 WBC 7.0 (3.5-10.8) 10^3/ul RBC 4.64 (4.0-5.4) 10^6/ul Hgb 13.9 L (14.0-18.0) g/dl Hct 41 L (42-52) % MCV 89 (80-94) fL MCH 30 (27-31) pg MCHC 34 (31-36) g/dl RDW 14 (10.5-15) % Plt Count 192 (150-450) 10^3/ul MPV 9 (7.4-10.4) um3 Neut % (Auto) 58.6 (38-83) % Lymph % (Auto) 30.4 (25-47) % Graves % (Auto) 8.0 (1-9) % Eos % (Auto) 1.8 (0-6) % Baso % (Auto) 1.2 (0-2) % Absolute Neuts (auto) 4.1 (1.5-7.7) 10^3/ul Absolute Lymphs (auto) 2.1 (1.0-4.8) 10^3/ul Absolute Monos (auto) 0.6 (0-0.8) 10^3/ul Absolute Eos (auto) 0.1 (0-0.6) 10^3/ul Absolute Basos (auto) 0.1 (0-0.2) 10^3/ul Absolute Nucleated RBC 0 10^3/ul Nucleated RBC % 0.1 INR (Anticoag Therapy) 0.93 (0.77-1.02) APTT 30.3 (26.0-36.3) seconds D-Dimer, Quantitative < 200 (Less Than 230) ng/mL Sodium 136 (133-145) mmol/L Potassium 3.8 (3.5-5.0) mmol/L Chloride 106 (101-111) mmol/L Carbon Dioxide 25 (22-32) mmol/L Anion Gap 5 (2-11) mmol/L BUN 16 (6-24) mg/dL Creatinine 0.81 (0.67-1.17) mg/dL Est GFR ( Amer) 137.9 (>60) Est GFR (Non-Af Amer) 107.2 (>60) BUN/Creatinine Ratio 19.8 (8-20) Glucose 84 (70-100) mg/dL Calcium 8.8 (8.6-10.3) mg/dL Total Bilirubin 0.60 (0.2-1.0) mg/dL AST 48 H (13-39) U/L ALT 79 H (7-52) U/L Alkaline Phosphatase 41 (34-104) U/L C-Reactive Protein 1.86 (< 5.00) mg/L Total Protein 6.0 L (6.4-8.9) g/dL Albumin 3.8 (3.2-5.2) g/dL Globulin 2.2 (2-4) g/dL Albumin/Globulin Ratio 1.7 (1-3) Result Diagrams: 06/19/17 04:30 06/19/17 04:30 Lab Statement: Any lab studies that have been ordered have been reviewed, and results considered in the medical decision making process. - CT Brain CT Interpretation Completed By: Radiologist - CT Brain, per radiologist, reveals no acute pathology. Dr. Us has reviewed this radiology report. C-spine CT Interpretation Completed By: Radiologist - CT C-spine, per radiologist, reveals central canal and bilateral neural foraminal narrowing at the C5-6 and C6-7. Dr. Us has reviewed this radiology report. Course/Dx - Course Assessment/Plan: This patient is a 36 year old M presenting to [facility] with a chief complaint of constant numbness and cramping in LUE (from fingertips to left shoulder, 4/10 in severity) for about a month. Symptoms aggravated and alleviated by nothing. Patient reports intermittent shooting pain in left forearm. Patient denies dropping objects, neck pain, CP, SOB, speech or vision changes, and bilat LE issues. PMHx includes sciatica. Allergies noted. Medications reviewed. BP noted and advised to follow up with PCP. CT Brain, per radiologist, reveals no acute pathology. Dr. Us has reviewed this radiology report. CT C-spine, per radiologist, reveals central canal and bilateral neural foraminal narrowing at the C5-6 and C6-7. Dr. Us has reviewed this radiology report. DISCUSSED RESULTS WITH PATIENT. NO WEAKNESS FOUND ON EXAM. WILL F/U WITH PMD. DISCUSSED GETTING AN MRI AND POSSIBLE NERVE CONDUCTION STUDY. DISCUSSED RETURNING TO THE ED IF WORSE. - Diagnoses Provider Diagnoses: Uncontrolled hypertension, Left arm pain, Arm paresthesia, left, Degenerative disc disease, cervical Discharge - Discharge Plan Condition: Stable Disposition: HOME Patient Education Materials: Paresthesia (ED), Degenerative Disc Disease (ED), Arm Pain (ED) Referrals: [facility] [Provider Group] [facility] [Outside] Additional Instructions: FOLLOW UP WITH YOUR PRIMARY CARE DOCTOR. DISCUSS AN MRI FOR YOU NECK. YOU MAY NEED TO BE SEEN BY NEUROLOGY FOR A NERVE CONDUCTION STUDY. TAKE IBUPROFEN 600MG EVERY 6 HOURS NEEDED IF HELPFUL. RETURN TO THE EMERGENCY DEPARTMENT FOR ANY WORSENING OF YOUR CONDITION; WEAKNESS , NUMBNESS OR QUESTIONS OR CONCERNS. Your blood pressure was elevated during todays visit; please follow up with your primary care provider within a week for further evaluation. The documentation as recorded by the Masood [place] Nilda accurately reflects the service I personally performed and the decisions made by me, Jamaal Us MD.
== END 2017-06-19 07:17 | disposition home or self-care (01) ==
LOC: ED 01:14
DX: I10 Essential (primary) hypertension (principal); M79.602 Pain in left arm; R20.2 Paresthesia of skin; M50.30 Other cervical disc degeneration, unspecified cervical region; F17.210 Nicotine dependence, cigarettes, uncomplicated
CPT/HCPCS: 36415; 70450; 72125; 80053; 85025; 85379; 85610; 85730; 86140; 99282

== ENCOUNTER 2017-11-18 19:56 | Emergency (ER) | payer MEDICARE, MEDICAID ==
[~2017-11-18 19:56] MED LIST changes: +Haloperidol INJ IV/IM* 5 MG/ML AMP ONE; +LORazepam INJ* 2 MG/ML 1 ML VIAL ONE; -Mouth Piece, Nicotine* 1 EACH CARTRIDGE ONE; -Nicotine Inhaler* 10 MG AMP INH ONE; +diPHENhydraMINE IV* 50 MG/ML 1 ml VIAL (BENADRYL) ONE
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
[2017-11-18 20:47] LABS: ABS Basophils 0.1 10^3/ul (0-0.2); ABS Eosinophils 0.5 10^3/ul (0-0.6); ABS Lymphocytes 2.1 10^3/ul (1.0-4.8); ABS Monocytes 0.3 10^3/ul (0-0.8); ABS Neutrophils 3.7 10^3/ul (1.5-7.7); ABS Nucleated RBC 0 10^3/ul; Eosinophil % 6.9 % (0-6); Hematocrit 45 % (42-52); Hemoglobin 14.8 g/dl (14.0-18.0); Lymphocyte % 31.2 % (25-47); Mean Corpuscular HGB Conc 33 g/dl (31-36); Mean Corpuscular Hemoglobin 29 pg (27-31); Mean Corpuscular Volume 88 fL (80-94); Mean Platelet Volume 8.2 um3 (7.4-10.4); Nucleated Red Blood Cells % 0; Platelet Count 205 10^3/ul (150-450); Red Blood Count 5.06 10^6/ul (4.00-5.40); Red Cell Distribution Width 14 % (10.5-15); White Blood Count 6.6 10^3/ul (3.5-10.8)
[2017-11-18 21:10] LABS: EGFR Non-African American 106.6 (>60)
--- NOTE | 2017-11-19 03:03 | ED ---
Progress - Progress Note Progress Note: Pt received in sign out from Dr. Us at change of shift 2200, 11/18/17. Pt intoxicated and needing mental health exam. Pt asleep during my shift, rouses easily. Pending sobriety approximately 0600. Care to Dr. Siegel at change of shift 0300 11/19/17. Exam: sleeping, rouses easily. HEENT: neg Neck supple Cor S1S1 Lungs clear Abd benign Extrem: moves all extrem Neuro: asleep, rouses easily, no focal deficit, intoxicated Course/Dx - Course Course Of Treatment: MHE AND DISPOSITION PENDING AT SHIFT CHANGE - Diagnoses Provider Diagnoses: Acute alcohol intoxication, Mental health problem Discharge - Sign-Out/Discharge Documenting (check all that apply): Sign-Out Patient, Receiving Sign-Out Signing out patient TO: Denisa Siegel - 0300 11/19/17, pending sobriety and MHE Receiving patient FROM: Jamaal Us - Discharge Plan Condition: Stable - Billing Disposition and Condition Condition: STABLE
[2017-11-19 09:17] VITALS: BP 0/0
--- NOTE | 2017-11-20 11:41 | ED ---
Progress - Progress Note Progress Note: Pt received in sign out from Dr. Us at change of shift 2200, 11/18/17. Pt intoxicated and needing mental health exam. Pt asleep during my shift, rouses easily. Pending sobriety approximately 0600. Care to Dr. Siegel at change of shift 0300 11/19/17. Exam: sleeping, rouses easily. HEENT: neg Neck supple Cor S1S1 Lungs clear Abd benign Extrem: moves all extrem Neuro: asleep, rouses easily, no focal deficit, intoxicated Patient clinically seen and evaluated by the mental health department after he was sober for discharge home and was diagnosed at all cold induced mood disorder. - Consult/PCP Time Called: 06:00 Course/Dx - Course Course Of Treatment: MHE AND DISPOSITION PENDING AT SHIFT CHANGE - Diagnoses Provider Diagnoses: Acute alcohol intoxication, Mental health problem Discharge - Sign-Out/Discharge Documenting (check all that apply): Patient Departure - Discharge Plan Condition: Stable Disposition: HOME Patient Education Materials: Alcohol Intoxication (ED), Abuse of Alcohol (ED) - Billing Disposition and Condition Condition: STABLE Disposition: Home
== END 2017-11-19 09:14 | disposition home or self-care (01) ==
LOC: ED 19:56
DX: F10.129 Alcohol abuse with intoxication, unspecified (principal); F41.9 Anxiety disorder, unspecified; F32.9 Major depressive disorder, single episode, unspecified; F43.10 Post-traumatic stress disorder, unspecified; Z86.14 Personal history of Methicillin resistant Staphylococcus aureus infection; Z88.1 Allergy status to other antibiotic agents; Z88.8 Allergy status to other drugs, medicaments and biological substances; Z82.49 Family history of ischemic heart disease and other diseases of the circulatory system; Z83.3 Family history of diabetes mellitus; Z80.9 Family history of malignant neoplasm, unspecified; Z82.3 Family history of stroke; Z82.0 Family history of epilepsy and other diseases of the nervous system; F17.210 Nicotine dependence, cigarettes, uncomplicated
CPT/HCPCS: 36415; 80053; 80320; 80329; 84443; 85025; 99285; G0480; J1200; J1630; J2060

== ENCOUNTER 2020-07-01 13:37 | Observation (INO) ==
[2020-07-01 15:17] LABS: Troponin I 0.15 ng/mL (<0.03)
[2020-07-01] MEDS ORDERED: Ondansetron 4 mg VIAL 2 MG/ML 2 ml VIAL IV PRN (15:19)
[2020-07-01] MEDS ORDERED: NS 0.9% 1000 ml BAG 1,000 ML IV ONE (15:57)
[2020-07-01 16:27] LABS: HIV 4th Generation Nonreactive (Nonreactive)
[2020-07-01 16:38] LABS: Urine Benzodiazepine Screen None Detected (None Detect); Urine Cannabinoids Screen Presumptive Positive (None Detect); Urine Opiates Screen None Detected (None Detect)
[2020-07-01 17:41] LABS: Hepatitis C Antibody Reactive (Negative)
[2020-07-01 22:36] LABS: Troponin I 0.16 ng/mL (<0.03)
[2020-07-02 00:51] LABS: Troponin I 0.13 ng/mL (<0.03)
[2020-07-02 06:02] LABS: ABS Basophils 0.1 10^3/ul (0-0.2); ABS Eosinophils 0.1 10^3/ul (0-0.6); ABS Monocytes 0.7 10^3/ul (0-0.8); ABS Neutrophils 4.3 10^3/ul (1.5-7.7); Eosinophil % 2.1 %; Hematocrit 37 % (42-52); Hemoglobin 12.2 g/dL (14.0-18.0); Lymphocyte % 27.9 %; Mean Corpuscular HGB Conc 33 g/dL (31-36); Mean Corpuscular Hemoglobin 29 pg (27-31); Mean Corpuscular Volume 87 fL (80-94); Mean Platelet Volume 8.3 fL (7.4-10.4); Platelet Count 212 10^3/uL (150-450); Red Blood Count 4.24 10^6 /uL (4.18-5.48); Red Cell Distribution Width 14 % (10-15); White Blood Count 7.2 10^3/uL (3.5-10.8)
[2020-07-02 06:23] LABS: BUN/Creatinine Ratio 14.7 (8-20); Calcium 8.3 mg/dL (8.6-10.3); EGFR African American 139.6 (>60); EGFR Non-African American 115.3 (>60)
[2020-07-03 06:46] LABS: BUN/Creatinine Ratio 18.3 (8-20); Calcium 8.7 mg/dL (8.6-10.3); EGFR African American 148.7 (>60); EGFR Non-African American 122.9 (>60); HDL Cholesterol 55.9 mg/dL; Magnesium 1.9 mg/dL (1.9-2.7); Potassium 4.1 mmol/L (3.5-5.0)
[2020-07-03 08:03] VITALS: BP 147/83
== END 2020-07-03 08:30 | disposition left against medical advice (07) ==
LOC: MEDTELE 13:37 → ED 13:37 → MEDTELE 18:41
PROVIDERS: ADMIT Student in an Organized Health Care Education/Training Program; ATTEND Internal Medicine

== ENCOUNTER 2020-09-20 20:07 | Inpatient (IN) ==
[2020-09-20] MEDS ORDERED: LORazepam 2 mg VIAL 1 ml ONE (20:18)
[2020-09-20] MEDS ORDERED: Lorazepam PYXIS KEY PRN (20:19)
[2020-09-20] MEDS ORDERED: LORazepam 2 mg VIAL 1 ml IM ONE (20:19)
[2020-09-20] MEDS ORDERED: diPHENhydraMINE IV 50 MG/ML 1 ml VIAL (BENADRYL) IM ONE (20:20)
[2020-09-20 21:11] LABS: ABS Basophils 0.1 10^3/ul (0-0.2); ABS Monocytes 0.4 10^3/ul (0-0.8); ABS Neutrophils 4.4 10^3/ul (1.5-7.7); Eosinophil % 0.7 %; Hematocrit 43 % (42-52); Hemoglobin 14.1 g/dL (14.0-18.0); Lymphocyte % 16.9 %; Mean Corpuscular HGB Conc 33 g/dL (31-36); Mean Corpuscular Hemoglobin 29 pg (27-31); Mean Corpuscular Volume 87 fL (80-94); Mean Platelet Volume 8.5 fL (7.4-10.4); Platelet Count 239 10^3/uL (150-450); Red Blood Count 4.88 10^6 /uL (4.18-5.48); Red Cell Distribution Width 14 % (10-15); White Blood Count 5.9 10^3/uL (3.5-10.8)
[2020-09-20 21:39] LABS: Alcohol, S < 10 mg/dL (<10); Salicylate < 2.50 mg/dL (<30)
[2020-09-20 21:40] LABS: Acetaminophen < 15 mcg/mL
[2020-09-20 21:46] LABS: ALT 30 U/L (7-52); AST 25 U/L (13-39); Albumin 3.9 g/dL (3.2-5.2); Albumin/Globulin Ratio 1.6 (1-3); Alkaline Phosphatase 59 U/L (35-149); Anion Gap 5 mmol/L (2-11); Blood Urea Nitrogen 14 mg/dL (6-24); CO2 Carbon Dioxide 29 mmol/L (22-32); Calcium 9.4 mg/dL (8.6-10.3); Chloride 107 mmol/L (101-111); EGFR African American 105.7 (>60); EGFR Non-African American 87.4 (>60); Globulin 2.5 g/dL (2-4); Glucose 69 mg/dL (70-100); Potassium 3.3 mmol/L (3.5-5.0); Sodium 141 mmol/L (135-145); Total Protein 6.4 g/dL (6.4-8.9)
[2020-09-20 21:54] LABS: TSH Ultra Thyroid Stim Horm 0.66 mcIU/mL (0.34-5.60)
[2020-09-20] MEDS ORDERED: Potassium Chlor 20 meq TAB.ER PO ONE (22:01)
[2020-09-21 03:57] VITALS: BP 136/89
[2020-09-21] MEDS ORDERED: LORazepam 2 mg VIAL 1 ml ONE (12:21)
[2020-09-21] MEDS ORDERED: Lorazepam PYXIS KEY PRN (12:22)
[2020-09-21] MEDS ORDERED: LORazepam 2 mg VIAL 1 ml IM ONE (12:22)
[2020-09-21] MEDS ORDERED: diPHENhydraMINE IV 50 MG/ML 1 ml VIAL (BENADRYL) IM ONE (12:25)
[2020-09-21] MEDS ORDERED: Haloperidol 5 mg/ml SDV IV/IM 5 MG/ML AMP IM ONE (12:25)
[2020-09-22] MEDS ORDERED: Haloperidol 5 mg/ml SDV IV/IM 5 MG/ML AMP IV SLOW PU PRN (01:35)
[2020-09-22] MEDS ORDERED: Lorazepam PYXIS KEY PRN (01:37)
[2020-09-22] MEDS ORDERED: Haloperidol 5 mg/ml SDV IV/IM 5 MG/ML AMP IM PRN (01:37)
[2020-09-22] MEDS ORDERED: diPHENhydraMINE IV 50 MG/ML 1 ml VIAL (BENADRYL) IM ONE (01:38)
[2020-09-22] MEDS: LORazepam 2 mg VIAL 1 ml IM ONE ×2 (01:45→05:06)
[2020-09-22] MEDS: Haloperidol 5 mg/ml SDV IV/IM 5 MG/ML AMP IV SLOW PU ONE ×2 (01:45→05:07)
[2020-09-22] MEDS ORDERED: Al Hydrox/Mg Hydrox/Simet LIQ 30 ML UDC PO PRN (01:50)
[2020-09-22] MEDS ORDERED: Nicotine GUM 2MG FRUIT FLAVOR PO PRN (02:00)
[2020-09-22] MEDS ORDERED: VELPATASVIR PO SCH (09:00)
[2020-09-22] MEDS ORDERED: Vitamin THERAPEUTIC TAB PO SCH (09:00)
[2020-09-22] MEDS ORDERED: Nicotine PATCH 21 MG/24 HR PATCH TRANSDERM SCH (09:00)
[2020-09-22] MEDS ORDERED: SOFOSBUVIR PO SCH (09:00)
== END 2020-09-22 12:13 | disposition home or self-care (01) | DRG 885 ==
LOC: ED 20:07 → BSU 09-21 22:41
PROVIDERS: ADMIT Psychiatry & Neurology Psychiatry; ATTEND Psychiatry & Neurology Psychiatry